=== PATIENT | female | born 1990 | race African-American/Black ===

== ENCOUNTER 2019-12-06 12:34 | Inpatient (IN) | payer MEDICAID ==
[~2019-12-06] VITALS: Ht 160 cm; Wt 39.2 kg
[2019-12-06 15:22] LABS: HEMOGLOBIN. 13.3 g/dL (12.0-16.0); MEAN CORPUSCULAR VOLUME 87.5 fL (81.0-99.0); MEAN PLATELET VOLUME 8.3 fl (7.4-10.4); PLATELET 136 x1000/uL (130-400); RED BLOOD CELL COUNT 4.57 mill/uL (4.2-5.4); RED CELL DISTRIBUTION WIDTH 15.6 % (11.6-14.6)
[2019-12-06 15:23] LABS: INR 0.9; PROTHROMBIN TIME 9.6 sec (9.6-11.0)
[2019-12-06 15:24] LABS: CHLORIDE 108 mEq/L (98-107)
[2019-12-06] MEDS ORDERED: SODIUM CHLORIDE 0.9% 500 ML IV ONE (15:35)
[2019-12-06 16:10] LABS: PLATELET ESTIMATE NORMAL
[2019-12-06 16:41] LABS: ETHANOL BLOOD < 10 mg/dL
[2019-12-06 16:45] LABS: CREATINE KINASE 81 IU/L (26-192)
[2019-12-06] MEDS ORDERED: POTASSIUM CHLORIDE 20MEQ TABLET SR PO ONE (16:45)
[2019-12-06 16:55] LABS: D-DIMER 0.38 mg/L FEU (<0.50)
[2019-12-06 18:09] LABS: CLARITY URINE CLEAR (CLEAR); COLOR URINE YELLOW (YELLOW); KETONES URINE NEGATIVE (NEGATIVE); LEUKOCYTE ESTERASE URINE NEGATIVE (NEGATIVE); NITRITE URINE NEGATIVE (NEGATIVE); OCCULT BLOOD URINE 1+ (NEGATIVE); PROTEIN URINE 3+ (NEGATIVE); SPECIFIC GRAVITY URINE 1.018 (1.005-1.030); UROBILINOGEN URINE 0.2 E.U./dL (0.2-1.0)
[2019-12-06 18:21] LABS: METHADONE URINE SCREEN NEGATIVE (NEGATIVE); OPIATES URINE SCREEN NEGATIVE (NEGATIVE)
[2019-12-06 18:22] LABS: *AMPHETAMINES SCREEN URINE NEGATIVE (NEGATIVE); *BARBITURATES SCREEN URINE NEGATIVE (NEGATIVE); *BENZODIAZEPINES SCREEN URINE NEGATIVE (NEGATIVE); *COCAINE SCREEN URINE NEGATIVE (NEGATIVE); CANNABINOID URINE SCREEN PRESUMTIVE POSITIVE (NEGATIVE); PHENCYCLIDINE URINE SCREEN NEGATIVE (NEGATIVE)
[2019-12-06] MEDS ORDERED: ONDANSETRON HCL 4MG/2ML INJ IV PRN (21:45)
[2019-12-06] MEDS ORDERED: ZOLPIDEM TARTRATE 5MG TABLET PO PRN (21:45)
[2019-12-06] MEDS ORDERED: DIPHENHYDRAMINE 50MG/ML VIAL IV PRN (21:45)
[2019-12-06] MEDS ORDERED: ACETAMINOPHEN 325MG TABLET PO PRN (21:45)
[2019-12-06 22:37] LABS: PHOSPHORUS 3.2 mg/dL (2.5-4.9)
[2019-12-06 22:41] LABS: T4 FREE 0.86 ng/dL (0.76-1.46)
[2019-12-06 23:08] LABS: VITAMIN B12 SERUM 306 pg/mL (211-911)
[2019-12-07] MEDS ORDERED: POTASSIUM CHLORIDE 20MEQ TABLET SR PO NR (04:30)
[2019-12-07] MEDS ORDERED: LEVOFLOXACIN 500MG PREMIX 100 ML IV NR (04:30)
[2019-12-07 04:40] VITALS: BP 106/78
[2019-12-07] MEDS: SODIUM CHLORIDE 0.9% INJ 3ML FLUSH IVF SCH (06:19)
[2019-12-07] MEDS: LEVOTHYROXINE SODIUM 100MCG TABLET PO SCH ×2 (07:40→08:37)
[2019-12-07 08:00] VITALS: BP 110/79
[2019-12-07] MEDS: ACETAMINOPHEN 325MG TABLET PO PRN (08:39)
[2019-12-07] MEDS ORDERED: POTASSIUM CHLORIDE 20MEQ TABLET SR PO SCH (14:15)
[2019-12-07] MEDS ORDERED: DEXT 5%/0.45% NACL KCL 40MEQ/L 1,000 ML IV SCH (16:00)
[2019-12-07] MEDS: CYANOCOBALAMIN 1000MCG/ML VIAL IM SCH (16:11)
[2019-12-07] MEDS: MULTIVITAMINS,THER W-MINERALS TABLET PO SCH (16:11)
[2019-12-07] MEDS: ENOXAPARIN 40MG/0.4ML SYR SUBCUT SCH (16:13)
[2019-12-07 20:00] VITALS: BP 111/77
[2019-12-08] VITALS (7 sets, daily range): BP systolic 96–117; BP diastolic 72–79
[2019-12-08] MEDS ORDERED: LEVOFLOXACIN 250MG PREMIX 50 ML IV SCH (08:00)
[2019-12-08] MEDS ORDERED: LEVOFLOXACIN 500MG PREMIX 100 ML IV SCH (08:00)
[2019-12-08] MEDS: CYANOCOBALAMIN 1000MCG/ML VIAL IM SCH (08:51)
[2019-12-08] MEDS: MULTIVITAMINS,THER W-MINERALS TABLET PO SCH (08:51)
[2019-12-08] MEDS: ENOXAPARIN 40MG/0.4ML SYR SUBCUT SCH ×2 (08:51→17:42)
[2019-12-08] MEDS: SODIUM CHLORIDE 0.9% INJ 3ML FLUSH IVF SCH (17:43)
[2019-12-09] VITALS: BP 99/54
[2019-12-09 04:00] VITALS: BP 106/80
[2019-12-09] MEDS: LEVOTHYROXINE SODIUM 100MCG TABLET PO SCH (06:31)
[2019-12-09] MEDS: SODIUM CHLORIDE 0.9% INJ 3ML FLUSH IVF SCH ×2 (06:31→22:00)
[2019-12-09 08:00] VITALS: BP 103/73
[2019-12-09] MEDS: CYANOCOBALAMIN 1000MCG/ML VIAL IM SCH (09:00)
[2019-12-09] MEDS: MULTIVITAMINS,THER W-MINERALS TABLET PO SCH (09:00)
[2019-12-09 12:00] VITALS: BP 94/67
[2019-12-09] MEDS ORDERED: LEVOFLOXACIN 500MG TABLET PO NR (13:00)
[2019-12-09 16:00] VITALS: BP 84/58
[2019-12-09 20:00] VITALS: BP 83/55
[2019-12-10] VITALS (7 sets, daily range): BP systolic 81–103; BP diastolic 54–66
[2019-12-10 00:16] LABS: HEMATOCRIT. 32.9 % (36.0-48.0); HEMOGLOBIN. 11.3 g/dL (12.0-16.0); MEAN CORPUSCULAR HEMOGLOBIN 29.6 pg (28.0-32.0); MEAN CORPUSCULAR VOLUME 86.3 fL (81.0-99.0); MEAN PLATELET VOLUME 7.9 fl (7.4-10.4); PLATELET 175 x1000/uL (130-400); RED BLOOD CELL COUNT 3.82 mill/uL (4.2-5.4); RED CELL DISTRIBUTION WIDTH 16.2 % (11.6-14.6)
[2019-12-10 00:23] LABS: CHLORIDE 113 mEq/L (98-107)
[2019-12-10 00:29] LABS: PHOSPHORUS 2.1 mg/dL (2.5-4.9)
[2019-12-10 01:00] LABS: HCG SCREEN NEGATIVE
[2019-12-10 01:08] LABS: HEPATITIS B SURFACE ANTIGEN NEGATIVE
[2019-12-10 01:12] LABS: PLATELET ESTIMATE NORMAL
[2019-12-10 01:38] LABS: HEPATITIS A AB IGM NEGATIVE (NEGATIVE)
[2019-12-10] MEDS: SODIUM CHLORIDE 0.9% INJ 3ML FLUSH IVF SCH ×2 (04:57→21:41)
[2019-12-10] MEDS: ACETAMINOPHEN 325MG TABLET PO PRN ×2 (05:33→10:39)
[2019-12-10] MEDS: LEVOTHYROXINE SODIUM 100MCG TABLET PO SCH (06:17)
[2019-12-10] MEDS: CYANOCOBALAMIN 1000MCG/ML VIAL IM SCH (10:01)
[2019-12-10] MEDS: MULTIVITAMINS,THER W-MINERALS TABLET PO SCH (10:01)
[2019-12-10] MEDS: SULFAMETHOXAZOLE/TRIMETHOPRIM 800/160MG TABLET PO SCH ×2 (10:01→20:51)
[2019-12-10] MEDS ORDERED: LEVOFLOXACIN 250MG TABLET PO SCH (11:00)
[2019-12-11] MEDS: ACETAMINOPHEN 325MG TABLET PO PRN ×3 (03:44→14:01)
[2019-12-11 04:00] VITALS: BP 98/70
[2019-12-11] MEDS: SODIUM CHLORIDE 0.9% INJ 3ML FLUSH IVF SCH ×3 (05:12→21:12)
[2019-12-11] MEDS: LEVOTHYROXINE SODIUM 100MCG TABLET PO SCH (06:33)
[2019-12-11 08:00] VITALS: BP 94/59
[2019-12-11] MEDS: MULTIVITAMINS,THER W-MINERALS TABLET PO SCH (09:34)
[2019-12-11] MEDS: SULFAMETHOXAZOLE/TRIMETHOPRIM 800/160MG TABLET PO SCH ×2 (09:34→21:12)
[2019-12-11] MEDS: CYANOCOBALAMIN 1000MCG/ML VIAL IM SCH (09:35)
[2019-12-11 12:00] VITALS: BP 92/60
[2019-12-11 16:00] VITALS: BP 96/73
[2019-12-11 20:00] VITALS: BP 91/66
[2019-12-12] VITALS: BP 100/70
[2019-12-12 04:00] VITALS: BP 91/63
[2019-12-12] MEDS: SODIUM CHLORIDE 0.9% INJ 3ML FLUSH IVF SCH ×3 (06:00→22:00)
[2019-12-12] MEDS: LEVOTHYROXINE SODIUM 100MCG TABLET PO SCH (06:23)
[2019-12-12 08:00] VITALS: BP 84/59
[2019-12-12] MEDS: SULFAMETHOXAZOLE/TRIMETHOPRIM 800/160MG TABLET PO SCH (08:55)
[2019-12-12] MEDS: MULTIVITAMINS,THER W-MINERALS TABLET PO SCH (08:55)
[2019-12-12] MEDS: CYANOCOBALAMIN 1000MCG/ML VIAL IM SCH (08:55)
[2019-12-12 12:00] VITALS: BP 98/66
[2019-12-12 16:00] VITALS: BP 100/60
[2019-12-12] MEDS ORDERED: SODIUM CHLORIDE 0.9% 1,000 ML IV SCH (19:00)
[2019-12-12 19:42] LABS: HEMATOCRIT 27.7 % (36.0-48.0); HEMOGLOBIN 9.4 g/dL (12.0-16.0); MEAN CORPUSCULAR VOLUME 84.8 fL (81.0-99.0); PLATELET 111 x1000/uL (130-400); RED BLOOD CELL COUNT 3.26 mill/uL (4.2-5.4)
[2019-12-12 20:00] VITALS: BP 79/49
[2019-12-12] MEDS ORDERED: SODIUM CHLORIDE 0.9% 1,000 ML IV NR (20:45)
[2019-12-12] MEDS ORDERED: PIPERACILLIN/TAZOBACTAM 3.375 G in DEXT 5% WATER 100 ML IV SCH (22:00)
[2019-12-12] MEDS ORDERED: PIPERACILLIN/TAZOBACTAM 3.375 G/VIAL IV SCH (22:00)
[2019-12-13] VITALS: BP 99/54
[2019-12-13] MEDS: VANCOMYCIN 750 MG PREMIX 150 ML IV SCH ×2 (01:44→10:39)
[2019-12-13] MEDS: CEFEPIME 1,000 MG in DEXTROSE 5% WATER 50 ML IV SCH ×2 (03:53→14:00)
[2019-12-13 04:00] VITALS: BP 85/63
[2019-12-13] MEDS: SODIUM CHLORIDE 0.9% INJ 3ML FLUSH IVF SCH ×2 (06:55→14:00)
[2019-12-13] MEDS: LEVOTHYROXINE SODIUM 100MCG TABLET PO SCH (07:04)
[2019-12-13 08:00] VITALS: BP 89/66
[2019-12-13] MEDS: MULTIVITAMINS,THER W-MINERALS TABLET PO SCH (10:39)
[2019-12-13] MEDS: CYANOCOBALAMIN 1000MCG/ML VIAL IM SCH (10:39)
[2019-12-13 12:00] VITALS: BP 99/76
== END 2019-12-13 15:27 | disposition left against medical advice (07) | DRG 892 ==
LOC: ER 12:34 → 7WST 17:28 → EDBEDREQ 17:32 → ENRESERV 12-07 03:44 → 6EST 12-08 12:29
PROVIDERS: ADMIT Internal Medicine; ATTEND Internal Medicine
DX: B20 Human immunodeficiency virus [HIV] disease (principal); A41.9 Sepsis, unspecified organism; E43 Unspecified severe protein-calorie malnutrition; E83.39 Other disorders of phosphorus metabolism; D72.819 Decreased white blood cell count, unspecified; S29.012A Strain of muscle and tendon of back wall of thorax, initial encounter; E87.6 Hypokalemia; E88.09 Other disorders of plasma-protein metabolism, not elsewhere classified; E03.9 Hypothyroidism, unspecified; Z53.29 Procedure and treatment not carried out because of patient's decision for other reasons; R74.0 Nonspecific elevation of levels of transaminase and lactic acid dehydrogenase [LDH]; Y90.9 Presence of alcohol in blood, level not specified; F12.90 Cannabis use, unspecified, uncomplicated; N39.0 Urinary tract infection, site not specified; Z20.828 Contact with and (suspected) exposure to other viral communicable diseases; X58.XXXA Exposure to other specified factors, initial encounter; R62.7 Adult failure to thrive; D75.9 Disease of blood and blood-forming organs, unspecified; F99 Mental disorder, not otherwise specified; Z59.0 Homelessness; Z91.14 Patient's other noncompliance with medication regimen; Z68.1 Body mass index [BMI] 19.9 or less, adult; Y93.89 Activity, other specified; Y92.89 Other specified places as the place of occurrence of the external cause; Y99.8 Other external cause status; Z22.322 Carrier or suspected carrier of Methicillin resistant Staphylococcus aureus
CPT/HCPCS: 36415; 71045; 80048; 80053; 80305; 80320; 81003; 82550; 82607; 82728; 83605; 83615; 83735; 83880; 84100; 84145; 84439; 84443; 84484; 84703; 85025; 85027; 85379; 85384; 86140; 86359; 86360; 86705; 86709; 86803; 87077; 87340; 87635; 87804; 93005; 99285; J0692; J1650; J1956; J2543; J3370; J3420; J7030; J7040; J7060; G0480